=== PATIENT | male | born 1985 | race Caucasian/White ===

== ENCOUNTER 2024-03-19 12:27 | Emergency (ER) | payer SELFPAY ==
--- NOTE | 2024-03-19 12:34 | ERPHSYRPT ---
- History of Present Illness Time Seen by Provider: 03/19/24 12:33 Source: patient Exam Limitations: no limitations Physician History: This is a right-handed 38-year-old white male patient who presents to the emergency department with a laceration to his right mid forearm that occurred prior to arrival. Patient was trying to remove a piece of Styrofoam out of a dual washerdryer unit. When he pulled out he caught something sharp which caused a laceration to his right mid forearm. Patient's tetanus status is not up-to-date. Timing/Duration: today Quality: painful Severity: mild Location: extremities (Dorsal rightmid forearm) Possible Causes: other (Accidental injury) Associated Symptoms: denies symptoms Allergies/Adverse Reactions: No Known Drug Allergies Allergy (Verified 03/19/24 12:37) Travel Risk - International Travel Have you traveled outside of the country in past 3 weeks: No - Emerging Infectious Disease Are you exhibiting symptoms associated with any current EIDs: No - Review of Systems Constitutional: No Symptoms Eyes: No Symptoms Ears, Nose, & Throat: No Symptoms Respiratory: No Symptoms Cardiac: No Symptoms Abdominal/Gastrointestinal: No Symptoms Genitourinary Symptoms: No Symptoms Musculoskeletal: Injury (Dorsal aspect right mid forearm laceration) Skin: Other (Dorsal aspect right mid forearm laceration) Neurological: No Symptoms Psychological: No Symptoms Endocrine: No Symptoms Hematologic/Lymphatic: No Symptoms Immunological/Allergic: No Symptoms All Other Systems: Reviewed and Negative - Past Medical History Pertinent Past Medical History: No - Past Surgical History Past Surgical History: No - Nursing Vital Signs Nursing Vital Signs: Initial Vital Signs Temperature 97.3 F 03/19/24 12:31 Pulse Rate 90 03/19/24 12:31 Respiratory Rate 18 03/19/24 12:31 Blood Pressure 138/73 03/19/24 12:31 O2 Sat by Pulse Oximetry 97 03/19/24 12:31 Pain Scale Pain Intensity 0 - Physical Exam General Appearance: no apparent distress, alert Eye Exam: PERRL/EOMI, eyes nml inspection Ears, Nose, Throat Exam: normal ENT inspection, moist mucous membranes Neck Exam: normal inspection, non-tender, supple, full range of motion Respiratory Exam: airway intact, No chest tenderness, No respiratory distress Gastrointestinal/Abdomen Exam: No tenderness Rectal Exam: not done Back Exam: normal inspection, normal range of motion, No CVA tenderness, No vertebral tenderness Extremity Exam: normal range of motion, pelvis stable, lacerations (4 cm in length stellate full-thickness skin flap dorsal aspect right mid forearm. Approximately half centimeters skin edge attachment. No foreign body. No active bleeding. Tendon function intact) Neurologic Exam: alert, oriented x 3, cooperative, admissions counselor II-XII nml as tested, normal mood/affect, nml cerebellar function, nml station & gait, sensation nml Skin Exam: laceration (See description above in the extremity exam section) Lymphatic Exam: No adenopathy SpO2 Interpretation: normal O2 Delivery: Room Air Procedures - Laceration/Wound Repair Right Dorsal Arm Time of Procedure: 12:45 Wound Location: Right, lower arm (Dorsal aspect right mid forearm) Wound Length (cm): 4 Wound's Depth, Shape: flap (Full-thickness skin flap) Wound Explored: clean (Wound explored to the base in a bloodless field. No foreign body noted. The wound was clean) Irrigated: Yes Hibiclens Prep: Yes Anesthesia: 1% Lidocaine Volume Anesthetic (ccs): 6 Suture Size/Type: 3-0, nylon Number of Sutures: 7 Layer Closure?: No Progress: 03/19/24 13:14 The patient tolerated the procedure well. The laceration site, after repair, was cleaned and then dried. Thin layer bacitracin ointment was applied. Nonstick gauze, 4 x 4 and Coban wrap was used to apply pressure dressing. Patient was informed that this is a skin flap with very minimal attachment and he may see discoloration and lose the skin flap. He is not to worry and to continue with the suture in place. - Course Nursing assessment & vital signs reviewed: Yes Ordered Tests: Medication Summary Discontinued Medications Generic Name Dose Route Start Last Admin Trade Name Freq PRN Reason Stop Dose Admin Bacitracin Zinc 0.9 each 03/19/24 12:42 03/19/24 12:49 Bacitracin Packet 1 Each Pckt TP 03/19/24 12:43 0.9 each STAT ONE Administration Bacitracin Zinc Confirm 03/19/24 12:47 Bacitracin Packet 1 Each Pckt Administered 03/19/24 12:48 Dose 2 each .ROUTE .STK-MED ONE Diphtheria/Tetanus/Acell Pertussis 0.5 ml 03/19/24 12:42 03/19/24 12:48 Tdap --Diph,Pertuss(Acell),Tet Vac/Pf 0.5 Ml Vial IM 03/19/24 12:43 0.5 ml .ONCE ONE Administration Diphtheria/Tetanus/Acell Pertussis Confirm 03/19/24 12:47 Tdap --Diph,Pertuss(Acell),Tet Vac/Pf 0.5 Ml Vial Administered 03/19/24 12:48 Dose 0.5 ml IM .STK-MED ONE Lidocaine HCl 10 ml 03/19/24 12:42 Lidocaine Hcl 1% 20 Ml Mdv 20 Ml Ml IJ 03/19/24 12:43 STAT ONE Lidocaine HCl Confirm 03/19/24 12:47 Lidocaine Hcl 1% 20 Ml Mdv 20 Ml Ml Administered 03/19/24 12:48 Dose 10 ml .ROUTE .STK-MED ONE - Progress Progress: improved, pain not gone completely Progress Note: 03/19/24 13:12 My medical decision making and the assignment of low complexity to this patient's medical issue today is based on review of the patient's past medical history, review the patient's medication list, reviewed patient drug allergy list, history present illness and physical findings on examination. The workup does not necessitate laboratory radiographic studies. 03/19/24 13:16 Patient is aware that this is a skin flap that has minimal attachment to the remainder of the skin site and that we are merely tacking the flap down to cover his wound with his own skin. This full-thickness skin flap might not heal. However, if he has any concerns he is to return to the emergency department for wound recheck. Counseled pt/family regarding: diagnosis, need for follow-up Medical Desision Making - Diagnostic Testing Diagnostic test were ordered, analyzed, and reviewed by me: No - Risk of complications The pt has a mod risk of morbidity or mortality based on: Need for prescription drug management - Departure Departure Disposition: Home Clinical Impression: Laceration of right forearm Condition: Stable Critical Care Time: No Referrals: DOCTOR,NO FAMILY [Primary Care Provider] - Follow up/PCP as directed Additional Instructions: Keep current dressing in place till the evening of 03/20/2024. Remove the dressing on the evening of 03/20/2024. At that time you may allow soap and water to flow over the wound. Blot dry or use a department chairperson. Do not rub this site. Once the laceration repair site is dry, apply thin layer of antibiotic ointment of choice and then recover with a nonstick gauze. Suture removal in 10 to 12 days. Expect some discoloration to the flap. Realized that this skin flap might not completely take and there will be discoloration present. If there are any questions or concerns before the 10 to 12 days for suture removal, return to the emergency department for wound check. Take your antibiotics as prescribed. Use Tylenol and ibuprofen for pain control. Keep the wound covered with a nonstick bandage Prescriptions: Cephalexin Mh 500 mg [Keflex 500 mg] 500 mg PO TID #21 cap
[2024-03-19 12:37] VITALS: RESP 18; TEMP 97.3
[2024-03-19] MEDS ORDERED: XYLOCAINE 1% HCL 20 ML MDV ONE ×2 (12:47→13:11)
[2024-03-19] MEDS ORDERED: Adacel Vial IM ONE (12:47)
[2024-03-19] MEDS ORDERED: BACIGUENT PACKET ONE (12:47)
[2024-03-19] MEDS: Adacel Vial IM ONE (12:48)
[2024-03-19] MEDS: BACIGUENT PACKET TP ONE (12:49)
[2024-03-19] MEDS: XYLOCAINE 1% HCL 20 ML MDV IJ ONE (13:11)
[2024-03-19 13:20] VITALS: BP 138/94; PULSE 86; O2SAT 98
== END 2024-03-19 13:25 | disposition home or self-care (01) ==
LOC: ED 12:27
DX: S51.811A Laceration without foreign body of right forearm, initial encounter (principal); W26.8XXA Contact with other sharp object(s), not elsewhere classified, initial encounter; Z23 Encounter for immunization
CPT/HCPCS: 12002; 90471; 90715; 96372; 99283; A9270-GY